=== PATIENT | male | born 1940 | race Caucasian/White ===

== ENCOUNTER → 2016-07-15 | Outpatient (REF) | payer MEDICARE, BC ==
[~2016-07-15] MED LIST: /WARF5TA OR; ASPI81TA45 OR; CALA180T OR; COLA100C2 OR; FISH1000 OR; MULTIVIT PO; OMEP20TA7 OR; OMEPRAZOLE; PLAV75TA2 OR; PRIL20CA OR; VALI5TAB OR; VERA12TASA OR; ZETI10TA OR; ZOCO40TA OR; [UNRECOGNIZED DRUG - OTHER] PO
[2016-07-15 11:39] LABS: INR 2.58
== END ==
LOC: M SFHCCLAY 09:30
PROVIDERS: ATTEND Family Medicine
DX: Z51.81 Encounter for therapeutic drug level monitoring (principal); Z79.01 Long term (current) use of 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s

== ENCOUNTER → 2016-08-14 | Outpatient (REF) | payer MEDICARE, BC ==
[2016-08-14 12:02] LABS: INR 2.19
== END ==
LOC: M SFHCCLAY 09:10
PROVIDERS: ATTEND Family Medicine
DX: Z86.73 Personal history of transient ischemic attack (TIA), and cerebral infarction without residual deficits (principal); Z79.01 Long term (current) use of 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s

== ENCOUNTER → 2016-09-10 | Outpatient (REF) | payer MEDICARE, BC ==
[2016-09-10 11:28] LABS: INR 3.28
[2016-09-10 11:44] LABS: ALBUMIN 3.4 GM/DL (3.2-5.2); ALBUMIN/GLOBULIN RATIO 0.94 (1.00-1.93); ALKALINE PHOSPHATASE 101 U/L (45-117); ALT/SGPT 40 U/L (12-78); ANION GAP 10 MEQ/L (8-16); AST/SGOT 31 U/L (15-37); BILIRUBIN,TOTAL 0.5 MG/DL (0.2-1.0); BLOOD UREA NITROGEN 13 MG/DL (7-18); CALCIUM LEVEL 8.9 MG/DL (8.8-10.2); CARBON DIOXIDE LEVEL 28 MEQ/L (21-32); CHLORIDE LEVEL 96 MEQ/L (98-107); CHOLESTEROL LEVEL 220 MG/DL (<200); CREATININE FOR GFR 0.94 MG/DL (0.70-1.30); GLOMERULAR FILTRATION RATE > 60.0 (>42); GLUCOSE, FASTING 104 MG/DL (83-110); POTASSIUM SERUM 4.1 MEQ/L (3.5-5.1); SODIUM LEVEL 134 MEQ/L (136-145); TRIGLYCERIDES LEVEL 175 MG/DL (<150)
== END ==
LOC: M SFHCCLAY 08:29
PROVIDERS: ATTEND Family Medicine
DX: E78.2 Mixed hyperlipidemia (principal); Z12.5 Encounter for screening for malignant neoplasm of prostate; Z86.73 Personal history of transient ischemic attack (TIA), and cerebral infarction without residual deficits
CPT/HCPCS: 80053; 80061; 85610; G0103

== ENCOUNTER → 2016-09-24 | Outpatient (REF) | payer MEDICARE, BC ==
[2016-09-24 11:33] LABS: INR 2.62
== END ==
LOC: M SFHCCLAY 09:00
PROVIDERS: ATTEND Family Medicine
DX: Z86.73 Personal history of transient ischemic attack (TIA), and cerebral infarction without residual deficits (principal)

== ENCOUNTER → 2016-10-22 | Outpatient (REF) | payer MEDICARE, BC ==
[2016-10-22 12:24] LABS: INR 2.64
== END ==
LOC: M SFHCCAPE 09:02
PROVIDERS: ATTEND Family Medicine
DX: Z79.01 Long term (current) use of 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s (principal)

== ENCOUNTER → 2016-11-19 | Outpatient (REF) | payer MEDICARE, BC ==
[2016-11-19 11:48] LABS: INR 2.27
== END ==
LOC: M SFHCCLAY 09:19
PROVIDERS: ATTEND Family Medicine
DX: Z86.73 Personal history of transient ischemic attack (TIA), and cerebral infarction without residual deficits (principal)

== ENCOUNTER → 2017-01-13 | Outpatient (REF) | payer MEDICARE, BC ==
[2017-01-13 11:57] LABS: INR 3.58
== END ==
LOC: M SFHCCLAY 08:47
PROVIDERS: ATTEND Family Medicine
DX: Z79.01 Long term (current) use of 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s (principal)

== ENCOUNTER → 2017-01-21 | Outpatient (REF) | payer MEDICARE, BC ==
[2017-01-21 11:41] LABS: INR 2.14
== END ==
LOC: M SFHCCLAY 08:56
PROVIDERS: ATTEND Family Medicine
DX: Z79.01 Long term (current) use of 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s (principal)

== ENCOUNTER → 2017-02-04 | Outpatient (REF) | payer MEDICARE, BC ==
[2017-02-04 12:51] LABS: INR 2.68
== END ==
LOC: M SFHCCLAY 08:53
PROVIDERS: ATTEND Family Medicine
DX: Z79.01 Long term (current) use of 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s (principal)

== ENCOUNTER → 2017-02-25 | Outpatient (REF) | payer MEDICARE, BC ==
[2017-02-25 11:38] LABS: INR 2.55
== END ==
LOC: M SFHCCLAY 08:49
PROVIDERS: ATTEND Family Medicine
DX: Z79.01 Long term (current) use of 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s (principal)

== ENCOUNTER → 2017-03-25 | Outpatient (REF) | payer MEDICARE, BC ==
[2017-03-25 12:27] LABS: INR 2.31
== END ==
LOC: M SFHCCLAY 08:54
PROVIDERS: ATTEND Family Medicine
DX: Z79.01 Long term (current) use of 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s (principal)

== ENCOUNTER → 2017-04-22 | Outpatient (REF) | payer MEDICARE, BC ==
[2017-04-22 12:18] LABS: INR 2.26
== END ==
LOC: M SFHCCLAY 08:48
PROVIDERS: ATTEND Family Medicine
DX: Z51.81 Encounter for therapeutic drug level monitoring (principal); Z79.01 Long term (current) use of 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s

== ENCOUNTER → 2017-05-20 | Outpatient (REF) | payer MEDICARE, BC ==
[2017-05-20 11:39] LABS: INR 2.78
== END ==
LOC: M SFHCCLAY 08:48
PROVIDERS: ATTEND Family Medicine
DX: Z79.01 Long term (current) use of 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s (principal)

== ENCOUNTER → 2017-06-17 | Outpatient (REF) | payer MEDICARE, BC ==
[2017-06-17 12:15] LABS: INR 2.68
== END ==
LOC: M SFHCCLAY 09:00
PROVIDERS: ATTEND Family Medicine
DX: Z51.81 Encounter for therapeutic drug level monitoring (principal); Z79.01 Long term (current) use of 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s

== ENCOUNTER → 2017-07-15 | Outpatient (CLI) | payer MEDICARE, BC | LOC: M CLY 11:29 | DX: S22.31XA Fracture of one rib, right side, initial encounter for closed fracture (principal); X58.XXXA Exposure to other specified factors, initial encounter; Y92.89 Other specified places as the place of occurrence of the external cause; Y93.89 Activity, other specified; Y99.8 Other external cause status | CPT/HCPCS: 71111; 85610 ==

== ENCOUNTER → 2017-07-29 | Outpatient (REF) | payer MEDICARE, BC ==
[2017-07-29 12:27] LABS: INR 2.13; PROTHROMBIN TIME 24.6 SECONDS (12.4-14.5)
== END ==
LOC: M SFHCCLAY 08:59
DX: Z79.01 Long term (current) use of 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s (principal)
CPT/HCPCS: 85610

== ENCOUNTER → 2017-08-12 | Outpatient (REF) | payer MEDICARE, BC ==
[2017-08-12 12:47] LABS: INR 2.43; PROTHROMBIN TIME 27.4 SECONDS (12.4-14.5)
== END ==
LOC: M SFHCCLAY 08:58
DX: Z51.81 Encounter for therapeutic drug level monitoring (principal); Z79.01 Long term (current) use of 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s
CPT/HCPCS: 85610

== ENCOUNTER → 2017-09-02 | Outpatient (REF) | payer MEDICARE, BC ==
[2017-09-02 11:49] LABS: INR 2.54; PROTHROMBIN TIME 28.4 SECONDS (12.4-14.5)
== END ==
LOC: M SFHCCLAY 08:48
DX: Z79.01 Long term (current) use of 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s (principal)
CPT/HCPCS: 85610

== ENCOUNTER → 2017-09-30 | Outpatient (REF) | payer MEDICARE, BC ==
[2017-09-30 11:47] LABS: INR 2.55; PROTHROMBIN TIME 28.5 SECONDS (12.4-14.5)
== END ==
LOC: M SFHCCLAY 09:05
DX: Z51.81 Encounter for therapeutic drug level monitoring (principal); Z79.01 Long term (current) use of 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s
CPT/HCPCS: 85610

== ENCOUNTER → 2017-10-28 | Outpatient (REF) | payer MEDICARE, BC ==
[2017-10-28 12:08] LABS: INR 2.37; PROTHROMBIN TIME 26.8 SECONDS (12.4-14.5)
== END ==
LOC: M SFHCCLAY 08:59
DX: Z79.01 Long term (current) use of 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s (principal)
CPT/HCPCS: 85610

== ENCOUNTER → 2017-11-25 | Outpatient (REF) | payer MEDICARE, BC ==
[2017-11-25 11:41] LABS: INR 4.49; PROTHROMBIN TIME 45.1 SECONDS (12.4-14.5)
== END ==
LOC: M SFHCCLAY 09:04
DX: Z79.01 Long term (current) use of 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s (principal)
CPT/HCPCS: 85610

== ENCOUNTER → 2017-12-09 | Outpatient (REF) | payer MEDICARE, BC ==
[2017-12-09 13:26] LABS: INR 3.04; PROTHROMBIN TIME 32.8 SECONDS (12.4-14.5)
== END ==
LOC: M SFHCCLAY 09:00
DX: Z51.81 Encounter for therapeutic drug level monitoring (principal); Z79.01 Long term (current) use of 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s
CPT/HCPCS: 85610

== ENCOUNTER → 2017-12-16 | Outpatient (REF) | payer MEDICARE, BC ==
[2017-12-16 11:44] LABS: PROTHROMBIN TIME 32.5 SECONDS (12.4-14.5)
== END ==
LOC: M SFHCCLAY 09:12
DX: Z51.81 Encounter for therapeutic drug level monitoring (principal); Z79.01 Long term (current) use of 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s; Z86.73 Personal history of transient ischemic attack (TIA), and cerebral infarction without residual deficits
CPT/HCPCS: 85610

== ENCOUNTER → 2017-12-30 | Outpatient (REF) | payer MEDICARE, BC ==
[2017-12-30 16:42] LABS: INR 2.06; PROTHROMBIN TIME 23.9 SECONDS (12.4-14.5)
== END ==
LOC: M SFHCCLAY 09:37
DX: Z79.01 Long term (current) use of 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s (principal); Z86.73 Personal history of transient ischemic attack (TIA), and cerebral infarction without residual deficits
CPT/HCPCS: 85610

== ENCOUNTER → 2018-01-20 | Outpatient (REF) | payer MEDICARE, BC ==
[2018-01-20 12:38] LABS: INR 2.74; PROTHROMBIN TIME 29.6 SECONDS (12.1-14.4)
== END ==
LOC: M SFHCCLAY 09:45
DX: Z51.81 Encounter for therapeutic drug level monitoring (principal); Z79.01 Long term (current) use of 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s
CPT/HCPCS: 85610

== ENCOUNTER → 2018-02-17 | Outpatient (REF) | payer MEDICARE, BC ==
[2018-02-17 12:08] LABS: INR 1.91; PROTHROMBIN TIME 22.2 SECONDS (12.1-14.4)
[2018-02-17 13:13] LABS: ALBUMIN 3.5 GM/DL (3.2-5.2); ALBUMIN/GLOBULIN RATIO 1.09 (1.00-1.93); ALKALINE PHOSPHATASE 66 U/L (45-117); ALT/SGPT 30 U/L (12-78); ANION GAP 9 MEQ/L (8-16); AST/SGOT 22 U/L (7-37); BILIRUBIN,TOTAL 0.6 MG/DL (0.2-1.0); BLOOD UREA NITROGEN 10 MG/DL (7-18); CALCIUM LEVEL 8.7 MG/DL (8.8-10.2); CARBON DIOXIDE LEVEL 27 MEQ/L (21-32); CHLORIDE LEVEL 97 MEQ/L (98-107); CHOLESTEROL LEVEL 207 MG/DL (<200); CHOLESTEROL RISK RATIO 5.048 (<5); CREATININE FOR GFR 0.95 MG/DL (0.70-1.30); GLOMERULAR FILTRATION RATE > 60.0 (>42); GLUCOSE, FASTING 116 MG/DL (70-100); HDL CHOLESTEROL 41 MG/DL (>40); NON-HDL-C 166 MG/DL; POTASSIUM SERUM 4.4 MEQ/L (3.5-5.1); SODIUM LEVEL 133 MEQ/L (136-145); TOTAL PROTEIN 6.7 GM/DL (6.4-8.2); TRIGLYCERIDES LEVEL 170 MG/DL (<150)
== END ==
LOC: M SFHCCLAY 09:07
DX: E78.2 Mixed hyperlipidemia (principal); Z79.01 Long term (current) use of 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s
CPT/HCPCS: 80053

== ENCOUNTER → 2018-03-17 | Outpatient (REF) | payer MEDICARE, BC ==
[2018-03-17 12:23] LABS: INR 1.91; PROTHROMBIN TIME 22.2 SECONDS (12.1-14.4)
== END ==
LOC: M SFHCCLAY 09:22
DX: Z79.01 Long term (current) use of 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s (principal)
CPT/HCPCS: 85610

== ENCOUNTER → 2018-04-14 | Outpatient (REF) | payer MEDICARE, BC ==
[2018-04-14 12:29] LABS: INR 2.09; PROTHROMBIN TIME 23.9 SECONDS (12.1-14.4)
== END ==
LOC: M SFHCCLAY 09:31
DX: Z79.01 Long term (current) use of 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s (principal)
CPT/HCPCS: 85610

== ENCOUNTER → 2018-05-12 | Outpatient (REF) | payer MEDICARE, BC ==
[2018-05-12 11:38] LABS: INR 2.58; PROTHROMBIN TIME 28.2 SECONDS (12.1-14.4)
== END ==
LOC: M SFHCCLAY 09:18
DX: Z51.81 Encounter for therapeutic drug level monitoring (principal); Z79.01 Long term (current) use of 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s
CPT/HCPCS: 85610

== ENCOUNTER → 2018-06-09 | Outpatient (REF) | payer MEDICARE, BC ==
[2018-06-09 12:03] LABS: INR 3.14
== END ==
LOC: M SFHCCLAY 09:30
DX: Z79.01 Long term (current) use of 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s (principal)
CPT/HCPCS: 85610

== ENCOUNTER → 2018-07-07 | Outpatient (REF) | payer MEDICARE, BC ==
[2018-07-07 11:45] LABS: INR 2.03; PROTHROMBIN TIME 23.3 SECONDS (12.1-14.4)
== END ==
LOC: M SFHCCLAY 09:14
PROVIDERS: ATTEND Family Medicine
DX: Z79.01 Long term (current) use of 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s (principal)

== ENCOUNTER → 2018-08-04 | Outpatient (REF) | payer MEDICARE, BC ==
[2018-08-04 11:58] LABS: INR 2.11; PROTHROMBIN TIME 24.1 SECONDS (12.1-14.4)
== END ==
LOC: M SFHCCLAY 09:34
PROVIDERS: ATTEND Family Medicine
DX: Z79.01 Long term (current) use of 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s (principal)

== ENCOUNTER → 2018-09-01 | Outpatient (REF) | payer MEDICARE, BC ==
[2018-09-01 12:43] LABS: INR 3.19; PROTHROMBIN TIME 33.4 SECONDS (12.1-14.4)
== END ==
LOC: M SFHCCLAY 09:09
PROVIDERS: ATTEND Family Medicine
DX: Z79.01 Long term (current) use of 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s (principal)

== ENCOUNTER → 2018-09-15 | Outpatient (REF) | payer MEDICARE, BC ==
[2018-09-15 12:07] LABS: INR 3.5
== END ==
LOC: M SFHCCLAY 09:19
PROVIDERS: ATTEND Family Medicine
DX: Z51.81 Encounter for therapeutic drug level monitoring (principal); Z79.01 Long term (current) use of 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s

== ENCOUNTER → 2018-09-29 | Outpatient (REF) | payer MEDICARE, BC ==
[2018-09-29 11:58] LABS: INR 2.86; PROTHROMBIN TIME 30.6 SECONDS (12.1-14.4)
== END ==
LOC: M SFHCCLAY 09:11
PROVIDERS: ATTEND Family Medicine
DX: Z79.01 Long term (current) use of 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s (principal)

== ENCOUNTER → 2018-10-13 | Outpatient (REF) | payer MEDICARE, BC ==
[~2018-10-13] MED LIST changes: -/WARF5TA OR; +COUM1TAB17 OR
[2018-10-13 12:08] LABS: INR 2.65; PROTHROMBIN TIME 28.8 SECONDS (12.1-14.4)
== END ==
LOC: M SFHCCLAY 09:02
PROVIDERS: ATTEND Family Medicine
DX: Z79.01 Long term (current) use of 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s (principal); Z86.73 Personal history of transient ischemic attack (TIA), and cerebral infarction without residual deficits

== ENCOUNTER → 2018-10-28 | Outpatient (REF) | payer MEDICARE, BC ==
[2018-10-28 11:30] LABS: INR 2.19; PROTHROMBIN TIME 24.8 SECONDS (12.1-14.4)
== END ==
LOC: M SFHCCAPE 08:44
PROVIDERS: ATTEND Family Medicine
DX: Z79.01 Long term (current) use of 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s (principal); Z86.73 Personal history of transient ischemic attack (TIA), and cerebral infarction without residual deficits

== ENCOUNTER → 2018-11-24 | Outpatient (REF) | payer MEDICARE, BC ==
[2018-11-24 11:48] LABS: INR 2.23; PROTHROMBIN TIME 25.1 SECONDS (12.1-14.4)
== END ==
LOC: M SFHCCLAY 09:22
PROVIDERS: ATTEND Family Medicine
DX: Z79.01 Long term (current) use of 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s (principal); Z86.73 Personal history of transient ischemic attack (TIA), and cerebral infarction without residual deficits

== ENCOUNTER → 2019-01-19 | Outpatient (REF) | payer MEDICARE, BC ==
[~2019-01-19] MED LIST changes: +OMEP-221 PO; +TAMS1CAP17 PO; +VALI5TAB PO; +VERA180C3 PO; +WARF-23 PO
[2019-01-19 12:27] LABS: INR 2.37; PROTHROMBIN TIME 25.7 SECONDS (11.8-14.0)
== END ==
LOC: M SFHCCLAY 09:08
PROVIDERS: ATTEND Family Medicine
DX: Z79.01 Long term (current) use of 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s (principal); Z86.73 Personal history of transient ischemic attack (TIA), and cerebral infarction without residual deficits

== ENCOUNTER 2019-01-24 10:07 | Day surgery (SDC) | payer MEDICARE, BC ==
[~2019-01-24] VITALS: Ht 175.3 cm; Wt 74.0 kg
[2019-01-24] MEDS ORDERED: NS 1,000 ML IV ONE (10:30)
--- NOTE | 2019-01-24 11:54 | ROOR ---
Patient Name: Kenny Marsh Procedure Date: 01/24/2019 11:43 AM Date of : 1940 Age: 78 Room: [facility] Gender: Male Note Status: Finalized Procedure: Upper GI endoscopy Indications: Heartburn Providers: Grayson BARRIENTOS MD Referring MD: MAGNOLIA STALEY DO Requesting Provider: Medicines: Monitored Anesthesia Care Complications: No immediate complications. Procedure: Pre-Anesthesia Assessment: - The heart rate, respiratory rate, oxygen saturations, blood pressure, adequacy of pulmonary ventilation, and response to care were monitored throughout the procedure. The Endoscope was introduced through the mouth, and advanced to the second part of duodenum. The upper GI endoscopy was accomplished without difficulty. The patient tolerated the procedure well. Findings: The examined esophagus was normal. The entire examined stomach was normal. The examined duodenum was normal. Impression: - Normal esophagus. - Normal stomach with a very small hiatla hernia. - Normal examined duodenum. - No specimens collected. Recommendation: - Follow an antireflux regimen. - Observe patient's clinical course. Grayson Barrientos MD Grayson BARRIENTOS MD 01/24/2019 11:54:08 AM Electronically signed by Grayson BARRIENTOS MD Number of Addenda: 0 Note Initiated On: 01/24/2019 11:43 AM Estimated Blood Loss: Estimated blood loss: none.
[2019-01-24] MEDS ORDERED: PROPOFOL 200 MG/20 ML VIAL As Ordered ONE (12:10)
[2019-01-24] MEDS ORDERED: LIDOCAINE 2% INJ 100 MG/5 ML SDV (FOR ANES.) As Ordered ONE (12:10)
[2019-01-24] MEDS ORDERED: ePHEDrine SULFATE 25 MG/5 ML(5MG/ML) SYRINGE As Ordered ONE (12:11)
--- NOTE | 2019-01-24 12:16 | ROOR ---
Patient Name: Kenny Marsh Procedure Date: 01/24/2019 11:44 AM Date of : 1940 Age: 78 Room: [facility] Gender: Male Note Status: Finalized Procedure: Colonoscopy Indications: High risk colon cancer surveillance: Personal history of colonic polyps, Last colonoscopy: September 2013 Providers: Grayson BARRIENTOS MD Referring MD: MAGNOLIA STALEY DO Requesting Provider: Medicines: Monitored Anesthesia Care Complications: No immediate complications. Procedure: Pre-Anesthesia Assessment: - The heart rate, respiratory rate, oxygen saturations, blood pressure, adequacy of pulmonary ventilation, and response to care were monitored throughout the procedure. The Colonoscope was introduced through the anus and advanced to the cecum, identified by appendiceal orifice and ileocecal valve. The colonoscopy was performed without difficulty. The patient tolerated the procedure well. The quality of the bowel preparation was fair. Findings: The perianal and digital rectal examinations were normal. (EXAM: Complete, PREP: Suboptimal) A localized area of granular mucosa was found in the cecum. Biopsies were taken with a cold forceps for histology. A 4 mm polyp was found in the sigmoid colon. The polyp was sessile. The polyp was removed with a cold snare. Resection and retrieval were complete. To prevent bleeding after the polypectomy, two hemostatic clips were successfully placed. There was no bleeding at the end of the procedure. Internal hemorrhoids were found during retroflexion. The hemorrhoids were medium-sized. The exam was otherwise without abnormality on direct and retroflexion views. Impression: - (EXAM: Complete, PREP: Suboptimal) - Granularity in the cecum. Biopsied. - One 4 mm polyp in the sigmoid colon, removed with a cold snare. Resected and retrieved. Clips were placed. - Internal hemorrhoids. - The examination was otherwise normal on direct and retroflexion views. Recommendation: - Telephone endoscopist for pathology results in 2 weeks. - Repeat colonoscopy for surveillance based on pathology results. Grayson Barrientos MD Grayson BARRIENTOS MD 01/24/2019 12:16:02 PM Electronically signed by Grayson BARRIENTOS MD Number of Addenda: 0 Note Initiated On: 01/24/2019 11:44 AM Estimated Blood Loss: Estimated blood loss: none.
[2019-01-24 12:40] VITALS: BP 125/82
== END 2019-01-24 12:56 | disposition home or self-care (01) ==
LOC: M OPP 10:07
PROVIDERS: ATTEND Internal Medicine Gastroenterology
DX: Z12.11 Encounter for screening for malignant neoplasm of colon (principal); Z86.010 Personal history of colon polyps; K64.8 Other hemorrhoids; K63.89 Other specified diseases of intestine; K63.5 Polyp of colon; R12 Heartburn; Z79.899 Other long term (current) drug therapy

== ENCOUNTER → 2019-02-16 | Outpatient (REF) | payer MEDICARE, BC ==
[2019-02-16 13:51] LABS: INR 2.75
[2019-02-16 13:59] LABS: BASO % 0.6 % (0.0-1.0); EOS # 0.1 10^3/uL (0.0-0.50); HEMOGLOBIN 15.3 g/dl (13.5-17.5); LYMPH # 1.5 10^3/uL (1.5-4.5); LYMPH % 30.5 % (24.0-44.0); MEAN CORPUSCULAR HEMOGLOBIN 32.3 pg (27.0-33.0); MEAN CORPUSCULAR HGB CONC 34.8 g/dl (32.0-36.5); MONO # 0.5 10^3/uL (0.0-0.8); MONO % 9.8 % (0.0-5.0); NEUTROPHILS # 2.8 10^3/uL (1.8-7.7); NEUTROPHILS % 56.7 % (36.0-66.0); PLATELET COUNT, AUTOMATED 169 10^3/uL (150-450); RED BLOOD COUNT 4.73 10^6/uL (4.30-6.10); WHITE BLOOD COUNT 4.9 10^3/uL (4.0-10.0)
[2019-02-16 14:21] LABS: ALBUMIN 3.8 GM/DL (3.2-5.2); ALT/SGPT 33 U/L (12-78); BILIRUBIN,TOTAL 0.4 MG/DL (0.2-1.0); BLOOD UREA NITROGEN 11 MG/DL (7-18); CALCIUM LEVEL 9.3 MG/DL (8.8-10.2); CARBON DIOXIDE LEVEL 29 MEQ/L (21-32); CHLORIDE LEVEL 95 MEQ/L (98-107); CHOLESTEROL LEVEL 209 MG/DL (<200); CHOLESTEROL RISK RATIO 5.971 (<5); CREATININE FOR GFR 0.91 MG/DL (0.70-1.30); GLOMERULAR FILTRATION RATE > 60.0 (>42); GLUCOSE, FASTING 87 MG/DL (70-100); HDL CHOLESTEROL 35 MG/DL (>40); LDL CHOLESTEROL 138 MG/DL (<100); NON-HDL-C 174 MG/DL; POTASSIUM SERUM 4.8 MEQ/L (3.5-5.1); SODIUM LEVEL 131 MEQ/L (136-145); TOTAL PROTEIN 6.6 GM/DL (6.4-8.2); TRIGLYCERIDES LEVEL 182 MG/DL (<150)
== END ==
LOC: M SFHCCLAY 08:55
PROVIDERS: ATTEND Family Medicine
DX: E78.2 Mixed hyperlipidemia (principal); Z86.73 Personal history of transient ischemic attack (TIA), and cerebral infarction without residual deficits; Z79.01 Long term (current) use of 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s

== ENCOUNTER → 2019-03-16 | Outpatient (REF) | payer MEDICARE, BC ==
[2019-03-16 17:11] LABS: INR 3.08; PROTHROMBIN TIME 31.7 SECONDS (11.8-14.0)
== END ==
LOC: M SFHCCLAY 10:52
PROVIDERS: ATTEND Family Medicine
DX: Z79.01 Long term (current) use of 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s (principal); Z86.73 Personal history of transient ischemic attack (TIA), and cerebral infarction without residual deficits

== ENCOUNTER → 2019-04-13 | Outpatient (REF) | payer MEDICARE, BC ==
[2019-04-13 11:48] LABS: INR 2.34; PROTHROMBIN TIME 25.5 SECONDS (11.8-14.0)
== END ==
LOC: M SFHCCLAY 09:28
PROVIDERS: ATTEND Family Medicine
DX: Z86.73 Personal history of transient ischemic attack (TIA), and cerebral infarction without residual deficits (principal); Z79.01 Long term (current) use of 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s

== ENCOUNTER → 2019-05-11 | Outpatient (REF) | payer MEDICARE, BC ==
[2019-05-11 12:20] LABS: INR 2.82; PROTHROMBIN TIME 29.6 SECONDS (11.8-14.0)
== END ==
LOC: M SFHCCLAY 10:06
PROVIDERS: ATTEND Family Medicine
DX: Z86.73 Personal history of transient ischemic attack (TIA), and cerebral infarction without residual deficits (principal)

== ENCOUNTER → 2019-06-07 | Outpatient (REF) | payer MEDICARE, BC ==
[2019-06-07 12:27] LABS: INR 3.04; PROTHROMBIN TIME 31.4 SECONDS (11.8-14.0)
== END ==
LOC: M SFHCCLAY 09:18
PROVIDERS: ATTEND Family Medicine
DX: Z51.81 Encounter for therapeutic drug level monitoring (principal); Z79.01 Long term (current) use of 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s; Z86.73 Personal history of transient ischemic attack (TIA), and cerebral infarction without residual deficits

== ENCOUNTER → 2019-07-03 | Outpatient (REF) | payer MEDICARE, BC ==
[2019-07-03 11:26] LABS: INR 2.51; PROTHROMBIN TIME 26.9 SECONDS (11.8-14.0)
== END ==
LOC: M SFHCCLAY 09:15
PROVIDERS: ATTEND Family Medicine
DX: Z86.73 Personal history of transient ischemic attack (TIA), and cerebral infarction without residual deficits (principal); Z79.01 Long term (current) use of 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s

== ENCOUNTER → 2019-08-03 | Outpatient (REF) | payer MEDICARE, BC ==
[2019-08-03 12:50] LABS: INR 3.05; PROTHROMBIN TIME 31.5 SECONDS (11.8-14.0)
== END ==
LOC: M SFHCCLAY 09:00
PROVIDERS: ATTEND Family Medicine
DX: Z86.73 Personal history of transient ischemic attack (TIA), and cerebral infarction without residual deficits (principal); Z79.01 Long term (current) use of 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s

== ENCOUNTER → 2019-08-30 | Outpatient (REF) | payer MEDICARE, BC ==
[2019-08-30 12:01] LABS: INR 2.87
[2019-08-30 12:02] LABS: ALBUMIN 3.9 GM/DL (3.2-5.2); ALT/SGPT 30 U/L (12-78); BILIRUBIN,TOTAL 0.5 MG/DL (0.2-1.0); BLOOD UREA NITROGEN 16 MG/DL (7-18); CALCIUM LEVEL 8.9 MG/DL (8.8-10.2); CARBON DIOXIDE LEVEL 30 MEQ/L (21-32); CHLORIDE LEVEL 98 MEQ/L (98-107); CHOLESTEROL LEVEL 211 MG/DL (<200); CHOLESTEROL RISK RATIO 6.593 (<5); CREATININE FOR GFR 0.98 MG/DL (0.70-1.30); GLOMERULAR FILTRATION RATE > 60.0 (>42); GLUCOSE, FASTING 79 MG/DL (70-100); HDL CHOLESTEROL 32 MG/DL (>40); LDL CHOLESTEROL 126 MG/DL (<100); NON-HDL-C 179 MG/DL; POTASSIUM SERUM 4.2 MEQ/L (3.5-5.1); SODIUM LEVEL 133 MEQ/L (136-145); TOTAL PROTEIN 6.9 GM/DL (6.4-8.2); TRIGLYCERIDES LEVEL 267 MG/DL (<150)
== END ==
LOC: M SFHCCLAY 08:34
PROVIDERS: ATTEND Family Medicine
DX: E78.2 Mixed hyperlipidemia (principal); Z12.5 Encounter for screening for malignant neoplasm of prostate; Z86.73 Personal history of transient ischemic attack (TIA), and cerebral infarction without residual deficits
CPT/HCPCS: 80053; 80061; 85610; G0103

== ENCOUNTER 2020-08-24 10:27 | Emergency (ER) | payer MEDICARE, BC ==
[~2020-08-24] VITALS: Ht 175.3 cm; Wt 79.6 kg
--- OUTSIDE RECORDS SUMMARY | 2020-08-24 10:34 | CCD ---
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 Active 191265848 Problem Benign prostatic hyperplasia with lower urinary tract symptoms N40.1 Active 411976679 Problem Anxiety F41.9 Active 48887768 Problem Erectile dysfunction, unspecified erectile dysfunction typ e N52.9 Active 406132978 Problem 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 02813450 Problem Migraine with aura and without status migrainosu s, not intractable G43.109 Active 7796303 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 Active 345259770 Problem Hx of colonic polyp Z86.010 Active 424093107 Problem GERD without esophagitis K21.9 Active 9190569 05 Problem Migraine without status migr ainosus, not intractable, unspecified migraine type G43.909 Active 89395862 Problem History of CVA (cerebrovascular accident) Z86.73 Active 362431321 ALLERGIES Allergen (clinical drug ingredient) Drug/Non Drug Allergy do cumented on EMR Reaction Allergy Type Onset Date Status simvastatin Zocor([facility] Code:[address]-89) myalgia Drug Allergy Active ENCOUNTERS from 1940 to 2020-07-22 Encounter Location Date Provider Diagnosis [facility] [address] [place] [address] Jul Hieu Castro shelter current use of 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 t herapy Z79.01 and History of CVA (cerebrovascular accident) Z86.73 IMMUNIZATIONS No Information SOCIAL HISTORY Tobacco Use: Social History Observation Description Date Details (start date - stop date) Former Smoker Sex Assigned At : Social History Observation Description Sex Assigned At Unknown Audit Question Answer Notes Total Score: 4 Interpretation: Alcohol Education Sexual Hx: Question Answer Notes Had sex in the last 12 months (vaginal, oral, or anal)? No Have you ever had an STD? No Drug and Alcohol Question Answer Notes Total Score: 0 Interpretation: No problems reported Alcohol Screening: Question Answer Notes Did you have a drink containing alcohol in the past year? Ye s Points 3 Interpretation Negative How often did you have six or more drinks on one occas ion in the past year? Never (0 points) How many drinks did you have on a typica l day when you were drinking in the past year? 1 or 2 (0 points) How often did you have a drink containing alcohol in t he past year? Two to three times per week (3 points) BMI Care Goal Follow-Up Question Answer Notes Above Normal BMI Follow-Up Dietary management educatio n, guidance, and counseling Tobacco Use: Question Answer Notes Are you a: former smoker How long has it been since you last smoked? > 10 years REASON FOR REFERRAL No Information VITAL SIGNS No information MEDICATIONS Medication SIG (Take, Route, Frequency, Duration) Notes Start Da te End Date Status Sildenafil Citrate 100 MG 1/2-1 tablet as needed Orall y Once a day for 30 day(s) Feb, Active Coumadin 5 MG 1 tablet Orally Once a day for 90 day(s) Active Verapamil HCl ER 180 MG 1 capsule Orally Once a day for 90 days Active Omeprazole 40 MG 1 capsule Orally Once a day for 90 day(s) Active Flomax 0.4 MG 1 capsule Orally Once a day for 90 Active Valium 5 MG 1 tablet as needed Orally-MARLON Twice a da y Code A/MDD #2 for 90 days Jul, Active PROCEDURES No Information RESULTS Component Value Reference Range PT-INR Fingerstick Reviewed date:07/18/2020 13:27:58 Interpretation: Performing Lab:[facility], [place] [address] INR 2.2 Verified Patient's Name and YES Current Dose 1 2.5M/W/F 5MG ROW Current Dose 2 Tab Strength Indication for Anticoagulation CVA Recent Bleeding NO Internal QC Acceptable (Y/N) Therapeutic Range 2-3 Education Given (Date / Initials) New Dose 1 no change New Dose 2 Weekly Total Next PT-INR 4 weeks - - REASON FOR VISIT INR FINGERSTICK MEDICAL (GENERAL) HISTORY Type Description Date Medical History Migraines Medical History CVA-2011 Medical History Anxiety Medical History BPH Medical History GERD Medical History Hyperlipidemia Surgical History Right and left knee arthroscopy Surgical History Colonoscopy- polyp, repeat 3 years 2013 Surgical History EGD- normal 01/2019 Surgical History Colonoscopy-polyp x1 01/2019 Hospitalization History CVA 2011 Goals Section No Information Health Concerns No Information MEDICAL EQUIPMENT No Information MENTAL STATUS No Information FUNCTIONAL STATUS No Information ASSESSMENTS Encounter Date Diagnosis Assessment Notes Treatment Notes Treatm ent Clinical Notes Jul, shelter current use of 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 therapy ( ICD-10 - Z79.01) Jul, History of CVA (cerebrovascular accident) (ICD-1 0 - Z86.73) PLAN OF TREATMENT Medication Medication Name Sig Start Date Stop Date Omeprazole 40 MG 1 capsule Orally Once a day for 90 day(s) Next Appt Details Provider Name:Hieu Caba Carlosemiliazaidapaige, 10:45:00 AM, [address] [place] [address], [phone], Insurance Providers Payer Name Payer Address Payer Phone Insured Name Patient Relati onship to Insured Coverage Start Date Coverage End Date MEDICARE Part A and B [facility] [address] [place] [phone] LYNN SAMSON [facility] PPO [id number] [facility] [address] LYNN SAMSON
--- OUTSIDE RECORDS SUMMARY | 2020-08-24 10:34 | CCD ---
Author Author [facility] Organization 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 Active confirmed 494879228 Problem Benign prostatic hyperplasia with lower urinary tract symptoms N40.1 Active confirmed 747152744 Problem Anxiety F41.9 Active confirmed 29926653 Problem Erectile dysfunction, unspecified erectile dysfunction typ e N52.9 Active confirmed 516557624 Problem 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 confirmed 89292745 Problem Migraine with aura and without status migrainosu s, not intractable G43.109 Active confirmed 3509660 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 Active confirmed 416849800 Problem Hx of colonic polyp Z86.010 Active confirmed 756875960 Problem GERD without esophagitis K21.9 Active confirmed 163618648 Problem Migraine without status migr ainosus, not intractable, unspecified migraine type G43.909 Active confirmed 06260804 Problem History of CVA (cerebrovascular accident) Z86.73 Active confirmed 681292772 ALLERGIES Allergen (clinical drug ingredient) Drug/Non Drug Allergy do cumented on EMR Reaction Allergy Type Onset Date Status simvastatin Zocor([facility] Code:[address]-39) myalgia Drug Allergy Active ENCOUNTERS from 1940 to 2020-08-19 Encounter Location Date Provider Diagnosis [facility] [address] [place] [address] Aug Hieu Castro assisted current use of 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 t herapy Z79.01 [...] Notes Start Da te End Date Status Flomax 0.4 MG 1 capsule Orally Once a day for 90 Active Coumadin 5 MG 1 tablet Orally Once a day for 90 day(s) Active Valium 5 MG 1 tablet as needed Orally-MARLON Twice a da y Code A/MDD #2 for 90 days Jul, Active Sildenafil Citrate 100 MG 1/2-1 tablet as needed Orall y Once a day for 30 day(s) Feb, Active Verapamil HCl ER 180 MG 1 capsule Orally Once a day for 90 days Active Omeprazole 40 MG 1 capsule Orally Once a day for 90 day(s) Active PROCEDURES No Information RESULTS Component Value Reference Range PT-INR Fingerstick Reviewed date:08/15/2020 11:26:00 Interpretation: Performing Lab:[facility], [place] [address] INR 2.0 Verified Patient's Name and yes Current Dose 1 2,5mg M/W/F 5MGROW Current Dose 2 Tab Strength Indication for Anticoagulation CVA Recent Bleeding NO Internal QC Acceptable (Y/N) Therapeutic Range Education Given (Date / Initials) New Dose 1 no change New Dose 2 Weekly Total Next PT-INR 4 weeks - - REASON FOR VISIT FINGERSTICK INR MEDICAL (GENERAL) HISTORY Type Description Date Medical [...] Notes Treatment Notes Treatm ent Clinical Notes Aug, 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 ( ICD-10 - Z79.01) Aug, History of CVA (cerebrovascular accident) (ICD-1 0 - Z86.73) PLAN OF TREATMENT Medication Medication Name Sig Start Date Stop Date Omeprazole 40 MG 1 capsule Orally Once a day for 90 day(s) Verapamil HCl ER 180 MG 1 capsule Orally Once a day for 90 days Next Appt Details Provider Name:Hieu Caba Gloria, 10:45:00 AM, [address] [place], [address], Insurance Providers Payer Name Payer Address Payer Phone Insured Name Patient Relati onship to Insured Coverage Start Date Coverage End Date MEDICARE Part A and B [address] [facility] [phone] LYNN SAMSON [employer] [place] PPO [id number] [facility] [employer] [facility] [place] [address] LYNN SAMSON
--- OUTSIDE RECORDS SUMMARY | 2020-08-24 10:34 | CCD ---
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 Active 191017519 Problem Benign prostatic hyperplasia with lower urinary tract symptoms N40.1 Active 103194849 Problem Anxiety F41.9 Active 00340495 Problem Erectile dysfunction, unspecified erectile dysfunction typ e N52.9 Active 396012275 Problem 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 52293217 Problem Migraine with aura and without status migrainosu s, not intractable G43.109 Active 6236054 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 of 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 therapy Z79 .01 Active 199233827 Problem Hx of colonic polyp Z86.010 Active 531810181 Problem GERD without esophagitis K21.9 Active 7917590 05 Problem Migraine without status migr ainosus, not intractable, unspecified migraine type G43.909 Active 88186597 Problem History of CVA (cerebrovascular accident) Z86.73 Active 583709008 ALLERGIES Allergen (clinical drug ingredient) Drug/Non Drug Allergy do cumented on EMR Reaction Allergy Type Onset Date Status simvastatin Zocor([facility] Code:[address]-39) myalgia Drug Allergy Active ENCOUNTERS from 1940 to 2020-06-24 Encounter Location Date Provider Diagnosis [facility] [address] [place] [address] Jun Hieu Castro jail current use of 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 t herapy Z79.01 [...] Component Value Reference Range PT-INR Fingerstick Reviewed date:06/20/2020 12:57:01 Interpretation: Performing Lab:[facility], [place] [address] INR 2.2 Verified Patient's Name and yes Current Dose 1 2.5mg MWF Current Dose 2 5mg ROW Tab Strength Indication for Anticoagulation CVA Recent Bleeding No Internal QC Acceptable (Y/N) Therapeutic Range 2-3 Education Given (Date / Initials) New Dose 1 no change New Dose 2 Weekly Total Next PT-INR 4 weeks - - REASON FOR VISIT INR fingerstick MEDICAL (GENERAL) HISTORY Type Description Date Medical [...] Notes Treatment Notes Treatm ent Clinical Notes Jun, weight recorder current use of 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 therapy ( ICD-10 - Z79.01) Jun, History of CVA (cerebrovascular accident) (ICD-1 0 - Z86.73) PLAN OF TREATMENT Medication Medication Name Sig Start Date Stop Date Omeprazole 40 MG 1 capsule Orally Once a day for 90 day(s) Next Appt Details Provider Name:Hieu Caba Kimberleepaige, 10:45:00 AM, [address] [place] [address], [phone], Insurance Providers Payer Name Payer Address Payer Phone Insured Name Patient Relati onship to Insured Coverage Start Date Coverage End Date MEDICARE Part A and B [facility] [address] [place] [phone] LYNN SAMSON [facility] PPO [id number] [facility] [id number] LYNN SAMSON
--- OUTSIDE RECORDS SUMMARY | 2020-08-24 10:34 | CCD ---
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 Active 812993878 Problem Benign prostatic hyperplasia with lower urinary tract symptoms N40.1 Active 380800200 Problem Anxiety F41.9 Active 42667819 Problem Erectile dysfunction, unspecified erectile dysfunction typ e N52.9 Active 747153212 Problem 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 14647547 Problem Migraine with aura and without status migrainosu s, not intractable G43.109 Active 3507760 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 Z79 .01 Active 080553793 Problem Hx of colonic polyp Z86.010 Active 675342127 Problem GERD without esophagitis K21.9 Active 1882148 05 Problem Migraine without status migr ainosus, not intractable, unspecified migraine type G43.909 Active 10969454 Problem History of CVA (cerebrovascular accident) Z86.73 Active 076878191 ALLERGIES Allergen (clinical drug ingredient) Drug/Non Drug Allergy do cumented on EMR Reaction Allergy Type Onset Date Status simvastatin Zocor([facility] Code:[address]-59) myalgia Drug Allergy Active ENCOUNTERS from 1940 to 2020-07-25 Encounter Location Date Provider Diagnosis [facility] [address] [place] [address] Jul Hieu Castro IMMUNIZATIONS No Information SOCIAL HISTORY Tobacco Use: [...] 90 day(s) Active PROCEDURES No Information RESULTS No Results REASON FOR VISIT Refill - Verapamil MEDICAL (GENERAL) HISTORY Type Description Date Medical [...] No Information FUNCTIONAL STATUS No Information ASSESSMENTS No Information PLAN OF TREATMENT Medication Medication Name Sig Start Date Stop Date Omeprazole 40 MG 1 capsule Orally Once a day for 90 day(s) Verapamil HCl ER 180 MG 1 capsule Orally Once a day for 90 days Next Appt Details Provider Name:Hieu Castro, 10:45:00 AM, [address] [facility], [place], [address], Insurance Providers Payer Name Payer Address Payer Phone Insured Name Patient Relati onship to Insured Coverage Start Date Coverage End Date MEDICARE Part A and B [address] [facility] [phone] [id number] [facility] [place] [address] LYNN SAMSON self
--- OUTSIDE RECORDS SUMMARY | 2020-08-24 10:35 | CCD ---
Author Author [facility] Organization [facility] Address Unknown Phone Unavailable Support Name Relationship Address Phone RE Next Of Kin Unknown Unavailable CLAUDETTE ALLISONIE Next Of Kin [id number] [facility] [address] [place] [address] [place] [address] Unavaila ble Re-disclosure Warning The records that you are about to access may contain information from federally-assisted alcohol or drug abuse programs. If such information is present, then the following federally mandated warning applies: This information has been disclosed to you from records protected by federal confidentiality rules (42 CFR part 2). The federal rules prohibit you from making any further disclosure of this information unless further disclosure is expressly permitted by the written consent of the person to whom it pertains or as otherwise permitted by 42 CFR part 2. A general authorization for the release of medical or other information is NOT sufficient for this purpose. The Federal rules restrict any use of the information to criminally investigate or prosecute any alcohol or drug abuse patient.The records that you are about to access may contain highly sensitive health information, the redisclosure of which is protected by Article 27-F of the [facility] Public Health law. If you continue you may have access to information: Regarding HIV / AIDS; Provided by facilities licensed or operated by the [facility] Office of Mental Health; or Provided by the [facility] Office for People With Developmental Disabilities. If such information is present, then the following [facility] mandated warning applies: This information has been disclosed to you from confidential records which are protected by state law. State law prohibits you from making any further disclosure of this information without the specific written consent of the person to whom it pertains, or as otherwise permitted by law. Any unauthorized further disclosure in violation of state law may result in a fine or group home sentence or both. A general authorization for the release of medical or other information is NOT sufficient authorization for further disc losure. Allergies and Adverse Reactions Type Description Substance Reaction Status Data Source(s ) Drug allergy Zocor Simvastatin myalgia Active eCW1 ([facility]) Family History Family Member Name Family Member Gender Family Member Status Date o f Status Description Data Source(s) Unknown Unknown Problem MEDENT ([facility], ) Encounters Encounter Providers Location Date Indications Data Source(s ) [place] [address] [facility] [address] 08/15/2020 12:00:00 AM EST eCW1 ([facility]) Unknown [address] [facility] [place] [address] 07/24/2020 12:00:00 AM EST eCW1 ([facility]) [place] [address] [facility] [address] 07/18/2020 12:00:00 AM EST eCW1 ([facility]) [place]patient [address] [facility] [place] [address] 06/20/2020 12:00:00 AM EST eCW1 ([facility]) [place] [address] [facility] [address] 05/21/2020 12:00:00 AM EST eCW1 ([facility]) [place] [address] [facility] [address] 05/09/2020 12:00:00 AM EDT eCW1 ([facility]) [place] [address] [facility] [address] 04/25/2020 12:00:00 AM EDT eCW1 ([facility]) [facility] [address] [facility] [address] 02/23/2020 12:00:00 AM EDT eCW1 ([facility]) [place] [address] [facility] [address] 01/25/2020 12:00:00 AM EDT eCW1 ([facility]) Unknown [address] [facility] [place] [address] 01/23/2020 12:00:00 AM EDT eCW1 ([facility]) [facility] [address] [facility] [address] 2019 12:00:00 AM EDT eCW1 ([facility]) [facility] [address] [facility] [address] 11/30/2019 12:00:00 AM EDT eCW1 ([facility]) [facility] [address] [place] [address], [place] [address] 10/30/2019 12:00:00 AM EDT eCW1 ([facility] [address] [place] [address] 10/30/2019 12:00:00 AM EDT eCW1 ([facility]) [facility] [address] [place] [address], [place] [address] 10/26/2019 12:00:00 AM EDT eCW1 ([facility]) [address] [address] 10/25/2019 12:00:00 AM EDT eCW1 ([facility]) [address] [address] 10/13/2019 12:00:00 AM EDT eCW1 ([facility]) [address] [address] 09/29/2019 12:00:00 AM EDT eCW1 ([facility]) [address] [address] 09/28/2019 12:00:00 AM EDT eCW1 ([facility]) [address] [address] 08/30/2019 12:00:00 AM EST eCW1 ([facility]) [address] [address] 08/30/2019 12:00:00 AM EST eCW1 ([facility]) [address] [address] 08/25/2019 12:00:00 AM EST eCW1 ([facility]) [address] [address] 08/03/2019 12:00:00 AM EST eCW1 ([facility]) [address] [address] 08/03/2019 12:00:00 AM EST eCW1 ([facility]) [address] [address] 07/25/2019 12:00:00 AM EST eCW1 ([facility]) [address] [address] 07/03/2019 12:00:00 AM EST eCW1 ([facility]) [address] [address] 07/03/2019 12:00:00 AM EST eCW1 ([facility]) Medications Medication Brand Name Start Date Product Form Dose Route Admi nistrative Instructions Pharmacy Instructions Status Indications Reaction Description Data Source(s) 180 mg 07/25/2020 12:00:00 AM EST capsule,ext rel. pellet s 24 hr 90 TAKE ONE CAPSULE BY MOUTH EVERY DAY TAKE ONE CAPSULE BY MOUTH EVERY DAY SOLD: 07/26/2020 [facility] 5 mg 05/13/2020 12:00:00 AM EST tablet 180 TAKE ONE TABLET BY MOUTH TWICE A DAY NEEDED MAX=2TABS/DAY TAKE ONE TABLET BY MOUTH TWICE A DAY NEEDED MAX=2TABS/DAY SOLD: 05/15/2020 [facility] 40 mg 04/09/2020 12:00:00 AM EDT capsule,delayed release (DR/EC) 90 TAKE ONE CAPSULE BY MOUTH ONCE DAILY TAKE ONE CAPSULE BY MOUTH ONCE DAILY SOLD: 07/09/2020 [facility] 40 mg 04/09/2020 12:00:00 AM EDT capsule,delayed release (DR/EC) 90 TAKE ONE CAPSULE BY MOUTH ONCE DAILY TAKE ONE CAPSULE BY MOUTH ONCE DAILY SOLD: 04/10/2020 [facility] 0.4 mg 03/05/2020 12:00:00 AM EDT capsule 90 TAKE ONE CAPSULE BY MOUTH EVERY DAY TAKE ONE CAPSULE BY MOUTH EVERY DAY SOLD: 06/10/2020 [facility] 0.4 mg 03/05/2020 12:00:00 AM EDT capsule 90 TAKE ONE CAPSULE BY MOUTH EVERY DAY TAKE ONE CAPSULE BY MOUTH EVERY DAY SOLD: 03/07/2020 [facility] 5 mg 01/26/2020 12:00:00 AM EDT tablet 180 TAKE ONE TABLET BY MOUTH TWICE A DAY NEEDED MAXIMUM DAILY DOSE = 2 TABLETS TAKE ONE TABLET BY MOUTH TWICE A DAY NEEDED MAXIMUM DAILY DOSE = 2 TABLETS SOLD: 02/01/2020 [facility] 180 mg 01/24/2020 12:00:00 AM EDT capsule,ext rel. pellet s 24 hr 90 TAKE ONE CAPSULE BY MOUTH EVERY DAY TAKE ONE CAPSULE BY MOUTH EVERY DAY SOLD: 01/25/2020 [facility] 180 mg 01/24/2020 12:00:00 AM EDT capsule,ext rel. pellet s 24 hr 90 TAKE ONE CAPSULE BY MOUTH EVERY DAY TAKE ONE CAPSULE BY MOUTH EVERY DAY SOLD: 04/25/2020 [facility] 180 mg 10/30/2019 12:00:00 AM EDT capsule,ext rel. pellet s 24 hr 90 TAKE ONE CAPSULE BY MOUTH EVERY DAY TAKE ONE CAPSULE BY MOUTH EVERY DAY SOLD: 10/31/2019 [facility] 5 mg 10/29/2019 12:00:00 AM EDT tablet 180 TAKE ONE TABLET BY MOUTH TWICE A DAY NEEDED MAXIMUM DAILY DOSE = 2 TABLETS TAKE ONE TABLET BY MOUTH TWICE A DAY NEEDED MAXIMUM DAILY DOSE = 2 TABLETS SOLD: 10/31/2019 [facility] 5 mg 10/13/2019 12:00:00 AM EDT tablet 90 TAKE ONE TABLET BY MOUTH EVERY DAY TAKE ONE TABLET BY MOUTH EVERY DAY SOLD: 06/10/2020 [facility] 5 mg 10/13/2019 12:00:00 AM EDT tablet 90 TAKE ONE TABLET BY MOUTH EVERY DAY TAKE ONE TABLET BY MOUTH EVERY DAY SOLD: 02/16/2020 [facility] 5 mg 10/13/2019 12:00:00 AM EDT tablet 90 TAKE ONE TABLET BY MOUTH EVERY DAY TAKE ONE TABLET BY MOUTH EVERY DAY SOLD: 10/26/2019 [facility] 5 mg 07/26/2019 12:00:00 AM EST tablet 180 TAKE ONE TABLET BY MOUTH TWICE A DAY NEEDED MAXIMUM DAILY DOSE = 2 TAKE ONE TABLET BY MOUTH TWICE A DAY NEEDED MAXIMUM DAILY DOSE = 2 SOLD: 08/03/2019 [facility] 40 mg 04/11/2019 12:00:00 AM EDT capsule,delayed release (DR/EC) 90 TAKE ONE CAPSULE BY MOUTH EVERY DAY TAKE ONE CAPSULE BY MOUTH EVERY DAY SOLD: 10/05/2019 [facility] 40 mg 04/11/2019 12:00:00 AM EDT capsule,delayed release (DR/EC) 90 TAKE ONE CAPSULE BY MOUTH EVERY DAY TAKE ONE CAPSULE BY MOUTH EVERY DAY SOLD: 01/11/2020 [facility] 40 mg 04/11/2019 12:00:00 AM EDT capsule,delayed release (DR/EC) 90 TAKE ONE CAPSULE BY MOUTH EVERY DAY TAKE ONE CAPSULE BY MOUTH EVERY DAY SOLD: 07/11/2019 [facility] 0.4 mg 03/16/2019 12:00:00 AM EDT capsule 90 TAKE ONE CAPSULE BY MOUTH EVERY DAY TAKE ONE CAPSULE BY MOUTH EVERY DAY SOLD: 12/13/2019 [facility] 0.4 mg 03/16/2019 12:00:00 AM EDT capsule 90 TAKE ONE CAPSULE BY MOUTH EVERY DAY TAKE ONE CAPSULE BY MOUTH EVERY DAY SOLD: 09/14/2019 [facility] 180 mg 11/07/2018 12:00:00 AM EDT capsule,ext rel. pellet s 24 hr 90 TAKE ONE CAPSULE BY MOUTH EVERY DAY TAKE ONE CAPSULE BY MOUTH EVERY DAY SOLD: 08/03/2019 [facility] 5 mg 08/16/2018 12:00:00 AM EST tablet 90 TAKE ONE TABLET BY MOUTH EVERY DAY TAKE ONE TABLET BY MOUTH EVERY DAY SOLD: 07/03/2019 [facility] Insurance Providers Payer name Policy type / Coverage type Policy ID Covered constitution party ID Covered constitution party's relationship to gamez Policy Game[employer] Plan Information MEDICARE [id number] SP [id number] [place]/307 [id number] SP [id number] [place]/307 [id number] SP [id number] MEDICARE [id number] SP [id number] [id number] ANSI-Medicare Part B [id number] ANSI-Commercial [id number] ANSI-Medicare Part B [id number] ANSI-Commercial [id number] ANSI-Commercial [id number] ANSI-Medicare Part B [id number] ANSI-Commercial [id number] ANSI-Medicare Part B [id number] ANSI-Commercial [id number] ANSI-Medicare Part B [id number] [facility] Part B [id number] Self [id number] Medicare [place] Medicare Primary [id number] Self [id number] ANSI-Commercial [id number] ANSI-Medicare Part B [id number] ANSI-Medicare Part B [id number] ANSI-Commercial [id number] ANSI-Commercial [id number] ANSI-Medicare Part B [id number] ANSI-Commercial [id number] ANSI-Medicare Part B [id number] ANSI-Medicare Part B [id number] ANSI-Commercial [id number] ANSI-Commercial [id number] ANSI-Medicare Part B [id number] ANSI-Commercial [id number] ANSI-Medicare Part B [id number] MEDICARE [id number] SP [id number] A ANSI-Medicare Part B [id number] ANSI-Commercial [id number] ANSI-Medicare Part B [id number] ANSI-Commercial [id number] ANSI-Commercial [id number] ANSI-Medicare Part B [id number] ANSI-Commercial [id number] ANSI-Medicare Part B [id number] ANSI-Medicare Part B [id number] ANSI-Commercial [id number]-[id number] ANSI-Medicare Part B [id number] ANSI-Commercial [id number]-5r6f-81jm-ye18x2w3x15s [id number]-4f1e-60pf-[id number] ANSI-Commercial [id number]-[id number]-[id number] [id number]-f314-2490-4npn-2s9y9q0p3y5z ANSI-Medicare Part B [id number]-[id number] ANSI-Commercial [id number]-7151-g6on-[id number] [id number]-9625-x6fw-r3d53fy2g0eb ANSI-Medicare Part B [id number] ANSI-Medicare Part B [id number]-[id number] ANSI-Commercial [id number]-[id number]-l514-3zv359p2q25c ANSI-Commercial [id number] ANSI-Medicare Part B [id number] ANSI-Commercial [id number] [id number] ANSI-Medicare Part B [id number] ANSI-Commercial cy545zlz-531g-[id number]-001e-50k3-38kb-[id number] ANSI-Medicare Part B [id number] ANSI-Medicare Part B [id number] ANSI-Commercial [id number]-[id number] ANSI-Medicare Part B [id number] ANSI-Commercial [id number] ANSI-Medicare Part B [id number] ANSI-Commercial [id number] [id number]-[id number] ANSI-Commercial [id number] ANSI-Medicare Part B [id number] ANSI-Commercial [id number]-a1mh-[id number]-[id number]-9k68-[id number] ANSI-Medicare Part B [id number] ANSI-Medicare Part B [id number] ANSI-Commercial [id number]-[id number] [employer] BCBS Medigap Part B [id number] Self [id number] Medicare [place] Medicare Primary [id number] Self [id number] [place] 200/700 UNAVAILABLE SP UNAVAILABLE [id number] Problems, Conditions, and Diagnoses Code Display Name Description Problem Type Effective Dates Data Source(s) G43.009 1769381 Migraine with aura a nd without status migrainosus, not intractable Problem 05/21/2020 12:00:00 AM EST eCW1 ([facility]) Surgeries/Procedures Procedure Description Date Indications Data Source(s) AntiCoag Mgmt Pt for Warfarin 11/30/2019 12:00:00 AM E DT eCW1 ([facility]) PROTHROMBIN TIME 09/28/2019 12:00:00 AM EDT eCW1 ([facility]) Office Visit, Est Pt., Level 3 PC 08/25/2019 12:00:00 AM EST eCW1 ([facility]) Office Visit, Est Pt., Level 3 FC 08/25/2019 12:00:00 AM EST eCW1 ([facility]) Annual wellness visit, includes a person alized prevention plan of service (pps), subsequent visit 08/25/2019 12:00:00 AM EST eCW1 ([facility]) Influenza immunization was not administe red for reasons documented by clinician (e.g., patient allergy or other medical reasons, patient declined or other patient reasons, vaccine not available or other system reasons) 08/25/2019 12:00:00 AM EST eCW1 ([facility]) Results ID Date Data Source PT-INR Fingerstick 05/21/2020 12:06:18 PM EST eCW1 ([facility]) Name Value Range Interpretation Code Description Data Dee rce(s) Supporting Document(s) 2.1 INR eCW1 ([facility]) YES Verified Patient's Name and DO B eCW1 ([facility]) 2.5mg M/W/F 5MG ROW Current Dose 1 eCW1 ([facility]) Current Dose 2 eCW1 ([facility]) Internal QC Acceptable (Y/N) e CW1 ([facility]) NO Recent Bleeding eCW1 ([facility]) Tab Strength eCW1 ([facility]) CVA Indication for Anticoagulation eCW1 ([facility]) Education Given (Date / Initia ls) eCW1 ([facility]) no change New Dose 1 eCW1 ([facility]) New Dose 2 eCW1 ([facility]) 2-3 Therapeutic Range eCW1 ([facility]) Weekly Total eCW1 ([facility]) - eCW1 (Critical access hospital) 4 weeks Next PT-INR eCW1 ([facility]) ID Date Data Source PT-INR 08/30/2019 12:00:00 AM EST eCW1 ([facility]) Name Value Range Interpretation Code Description Data Dee rce(s) Supporting Document(s) INR in Platelet poor plasma by Coagulation assay 2.87 INR eCW1 ([facility]) Prothrombin time (PT) 30.0 11.8-14.0 PROTHROMBIN TI ME eCW1 ([facility]) Procedure Social History Code Duration Value Status Description Data Source(s ) Smoking 05/21/2020 12:00:00 AM EST Former Smoker completed Former Smoker eCW1 ([facility]) Smoking 05/21/2020 12:00:00 AM EST Former Smoker completed Former Smoker eCW1 ([facility]) Smoking 05/21/2020 12:00:00 AM EST Former Smoker completed Former Smoker eCW1 ([facility]) Smoking 05/21/2020 12:00:00 AM EST Former Smoker completed Former Smoker eCW1 ([facility]) Smoking 05/21/2020 12:00:00 AM EST Former Smoker completed Former Smoker eCW1 ([facility]) Smoking 08/25/2019 12:00:00 AM EST Former Smoker completed Former Smoker eCW1 ([facility]) Smoking 08/25/2019 12:00:00 AM EST Former Smoker completed Former Smoker eCW1 ([facility]) Smoking 08/25/2019 12:00:00 AM EST Former Smoker completed Former Smoker eCW1 ([facility]) Smoking 08/25/2019 12:00:00 AM EST Former Smoker completed Former Smoker eCW1 ([facility]) Smoking 08/25/2019 12:00:00 AM EST Former Smoker completed Former Smoker eCW1 ([facility]) Vital Signs ID Date Data Source UNK Name Value Range Interpretation Code Description Data Source(s) Diastolic blood pressure 88 mm[Hg] 88 mm[Hg] eCW1 ([facility]) Systolic blood pressure 147 mm[Hg] 147 mm[Hg] e CW1 ([facility]) Body temperature 97.4 [degF] 97.4 [degF] eCW1 ( [facility]) Respiratory rate 16 /min 16 /min eCW1 ([facility]) Heart rate 75 /min 75 /min eCW1 ([facility]) Body mass index (BMI) [Ratio] 25.82 kg/m2 25.82 kg/m2 eCW1 ([facility]) Body height 69.5 [in_i] 69.5 [in_i] eCW1 ([facility]) Body weight 177.4 [lb_av] 177.4 [lb_av] eCW1 ([facility]) Diastolic blood pressure 73 mm[Hg] 73 mm[Hg] eCW1 ([facility]) Systolic blood pressure 113 mm[Hg] 113 mm[Hg] e CW1 ([facility]) Body temperature 97.9 [degF] 97.9 [degF] eCW1 ( [facility]) Respiratory rate 18 /min 18 /min eCW1 ([facility]) Heart rate 64 /min 64 /min eCW1 ([facility]) Body mass index (BMI) [Ratio] 26.69 kg/m2 26.69 kg/m2 eCW1 ([facility]) Body height 69.5 [in_us] 69.5 [in_us] eCW1 ([facility]) Body weight Measured 183.4 [lb_av] 183.4 [lb_av ] eCW1 ([facility])
--- OUTSIDE RECORDS SUMMARY | 2020-08-24 11:06 | CCD ---
Author Author [facility] Organization [facility] Address Unknown Phone Unavailable Support Name Relationship Address Phone RE Next Of Kin Unknown Unavailable LORRAINE FERRARI Next Of Kin [id number] REPLACED BY [facility] [address] [place] [address] [place] [address] Unavaila ble Re-disclosure Warning The records that [...] is protected by Article 27-F of the [facility] Public Health law. If you continue you may have access to information: Regarding HIV / AIDS; Provided by facilities licensed or operated by the [facility] Office of Mental Health; or Provided by the [facility] Office for People With Developmental Disabilities. If such information is present, then the following [facility] mandated warning applies: This information has been [...] law may result in a fine or nursing home sentence or both. A general authorization for the release of medical or other information is NOT sufficient authorization for further disc losure. Allergies and Adverse Reactions Type Description Substance Reaction Status Data Source(s ) Drug allergy Zocor Simvastatin myalgia Active eCW1 ([facility]) Family History Family Member Name Family Member Gender Family Member Status Date o f Status Description Data Source(s) Unknown Unknown Problem [facility], ) Encounters Encounter Providers Location Date Indications Data Source(s ) Outpatient [address] [facility] [address] 08/15/2020 12:00:00 AM EST eCW1 ([facility]) Unknown [address] [facility] [address] 07/24/2020 12:00:00 AM EST eCW1 ([facility]) Outpatient [address] [facility] [place] [address] 07/18/2020 12:00:00 AM EST eCW1 ([facility]) Outpatient [address] [facility] [address] 06/20/2020 12:00:00 AM EST eCW1 ([facility]) Outpatient [address] [facility] [address] 05/21/2020 12:00:00 AM EST eCW1 ([facility]) Unknown [address] [facility] [address] 05/09/2020 12:00:00 AM EDT eCW1 ([facility]) Outpatient [address] [facility] [address] 04/25/2020 12:00:00 AM EDT eCW1 ([facility]) [facility] [address] [facility] [address] 02/23/2020 12:00:00 AM EDT eCW1 ([facility]) Outpatient [address] [facility] [address] 01/25/2020 12:00:00 AM EDT eCW1 ([facility]) Unknown [address] [facility] [address] 01/23/2020 12:00:00 AM EDT eCW1 ([facility]) [facility] [address] [facility] [address] 2019 12:00:00 AM EDT eCW1 ([facility]) [facility] Iain [address] [facility] [address] 11/30/2019 12:00:00 AM EDT eCW1 ([facility]) [facility] [address] [facility] [address] 10/30/2019 12:00:00 AM EDT eCW1 ([facility]) [facility] [address] [place] [address] 10/30/2019 12:00:00 AM EDT eCW1 ([facility]) [facility] [address] [facility] [address] 10/26/2019 12:00:00 AM EDT eCW1 ([facility]) [facility] [address] [facility] [address] 10/25/2019 12:00:00 AM EDT eCW1 ([facility]) [facility] [address] [facility] [address] 10/13/2019 12:00:00 AM EDT eCW1 ([facility]) [facility] [address] [facility] [address] 09/29/2019 12:00:00 AM EDT eCW1 ([facility]) [facility] [address] [facility] [address] 09/28/2019 12:00:00 AM EDT eCW1 ([facility]) [facility] [address] [facility] [address] 08/30/2019 12:00:00 AM EST eCW1 ([facility]) [facility] [address] [facility] [address] 08/30/2019 12:00:00 AM EST eCW1 ([facility]) [address] [address] 08/25/2019 12:00:00 AM EST eCW1 ([facility]) [address] [address] 08/03/2019 12:00:00 AM EST eCW1 ([facility]) [address] [address] 08/03/2019 12:00:00 AM EST eCW1 ([facility]) [address] [address] 07/25/2019 12:00:00 AM EST eCW1 ([facility]) [address] [address] 07/03/2019 12:00:00 AM EST eCW1 ([facility]) [address] [address] 07/03/2019 12:00:00 AM EST eCW1 ([facility]) Medications Medication Brand Name Start Date Product [...] A DAY NEEDED MAX=2TABS/DAY SOLD: 05/15/2020 Dilia Hodgesu gs 40 mg 04/09/2020 12:00:00 AM EDT [...] type / Coverage type Policy ID Covered democrat ID Covered democrat's relationship to gamez Policy Gamez Plan Information MEDICARE [id number] SP [id number] [id number] [place]/307 [id number] SP [id number] [place]PO 302/307 [id number] SP [id number] MEDICARE [id number] SP [id number] V42 ANSI-Medicare Part B [id number] ANSI-Commercial [id number]-[id number] ANSI-Medicare Part B [id number] ANSI-Commercial [id number]-38lr-[id number] 5am5w728-37ty-11kg-[id number] ANSI-Commercial [id number]-[id number]-[id number] ANSI-Medicare Part B [id number]-[id number] ANSI-Commercial [id number]-40op-55th-[id number] 7exwn569-0ezv-79kt-90nl-[id number] ANSI-Medicare Part B [id number]-nrr0-121t-204d-[id number] ANSI-Commercial bkg8031i-w88e-564b-5e3w-[id number] pgi1091x-t74p-569v-9k3w-7y9c7j6bt095 ANSI-Medicare Part B [id number] Excell BCBS Medigap Part B [id number] Self [id number] Medicare [place] Medicare Primary [id number] Self [id number] ANSI-Commercial [id number]-10wv-[id number]-33xi-88c3b3xr7j8k ANSI-Medicare Part B [id number]-7a1i-462q-[id number] ANSI-Medicare Part B [id number]-[id number] ANSI-Commercial si6ag7wd-obu3-7352-13j1-fo97f201t4cy wl0qi9de-pax1-2949-69i4-pb97l411o5uv ANSI-Commercial 79o8e832-f041-7167-0354-343276sgb3f5 70d5h301-g838-8176-1320-394384ceo2w7 ANSI-Medicare Part B [id number]-w4pj-27w5-9i0t-[id number] ANSI-Commercial [id number]-w5w7-xj645248370g [id number]-o6l9-vd473844785j ANSI-Medicare Part B [id number]-v4ef-2k74-1a61-35um0838o1a9 ANSI-Medicare Part B [id number] 98ji8h29-5j71-0657-6v07-8757j678hsz4 ANSI-Commercial d4425687-ca99-6ww6-qs1u-8f1i7g80206x u9844786-yd25-8cc8-ky9b-9m7m8q72807t ANSI-Commercial 76ao9ppo-r342-8k56-70cs-65gf4018e1d9 97dr8hrr-e691-3g51-21cf-16rt5990q8b1 ANSI-Medicare Part B [id number]-0a18-82c6-ku4386815f60 ANSI-Commercial 6k856m14-8805-8yq2-m13r-4y3z602061i2 8o142c81-0192-9eo7-e53k-4i0n888668u9 ANSI-Medicare Part B [id number]-[id number] 38e5rr57-7o55-083a-a9a7-11j649183lfn MEDICARE [id number] SP [id number] ANSI-Medicare Part B [id number]-c125-573q-[id number] ANSI-Commercial 8r6779n6-r215-77kj-920i-c5053f17o124 0d0225b2-r054-19op-764k-m1245j86r586 ANSI-Medicare Part B [id number]-[id number] 5108zr76-21av-0ju5-8q42-b3qjh61i8970 ANSI-Commercial 1f11vqx7-fvs1-9u3o-463n-z298401p2614 0d65qpm4-opf0-9k6m-953s-v192010p0920 ANSI-Commercial i7721711-da04-9dlz-7451-0203279lld81 b8784766-ep70-7iup-6534-1821768hzo55 ANSI-Medicare Part B [id number] 4ovbor42-9122-24n8-76k0-576qaczzf415 ANSI-Commercial 82935u27-f84a-4132-p316-1f185h291h7d 21006v55-l73w-1588-m403-1e340z579e6r ANSI-Medicare Part B [id number] u32oa7rd-20x1-1f23-8873-9f48796jop4g ANSI-Medicare Part B [id number]-[id number] [id number]-wi1c-3jl2-2x82-523kly928q62 ANSI-Commercial wx215r13-s011-5690-ge70-9w34wl503e2t zj952j32-v561-3853-ns97-0q16lu566x4l ANSI-Medicare Part B [id number] fu220f94-9671-80j5-9da1-4r09rgp6ck3v ANSI-Commercial v442l371-94xy-3i5g-34qy-wj15m3m7e37c q340j518-66pp-1z9q-38hj-ax27j5b2n61m ANSI-Commercial 7g8d59c4-k364-0583-7zxz-0l2w2z8h1m9p 0b1w52w2-j866-0056-8mmq-7g4i5l4n9m3i ANSI-Medicare Part B [id number]-83b9-d13n-qe8ajfz97j3m 5x4888e2-52qp-38e0-u81s-rn5wdsv55p7m ANSI-Commercial 8q4n9390-6cpn-3236-j5xm-o0x10lk9y3vt 5u9h8722-1cuz-4757-x6fb-p1k01qw7v6qq ANSI-Medicare Part B [id number]-7069-i97t-02iz25yok195 3p7kwn30-41bg-5434-p86i-38zx33hwv419 ANSI-Medicare Part B [id number]-tcy3-2g9o-z7hw-1l2zl0s7416e 7iifn794-agb6-4b2v-f0xq-7a4sx8v5632y ANSI-Commercial 4zoi0d39-4312-219w-z309-7ka247m7y72h 9sbq3o56-4249-937x-p519-4yr519b3k99d ANSI-Commercial 77c70603-p93z-5vn3-30sb-0l5829388677 40s69508-l34r-8gw5-92yt-0z7971611043 ANSI-Medicare Part B [id number]-x023-1604-2yh5-y85li04z10pt 1380f357-a674-0785-5lp4-k33ex14r84ga ANSI-Commercial p47799z3-2498-4755-242r-9m4w6c24cipd q17784c7-9671-9983-468y-8u2e3z91hayo ANSI-Medicare Part B [id number]-9n98-6pri-212c-[id number] 99j32i1k-5b47-8bmm-726j-1c700e130t31 ANSI-Commercial hb864txm-708j-82d1-44gt-1f33i14tn668 ec711czr-948m-23t0-05ib-8s38o24hk294 ANSI-Medicare Part B [id number]-p53n-8r81e3314w4n 560q2f1w-2ft0-80m6-x36i-7a37g9853c0n ANSI-Medicare Part B [id number]-z715-18s5-6f44-77645fm7vp23 9effp5u2-r788-93l6-5n22-67863gs3fr49 ANSI-Commercial 57295bp0-508r-7y64-1114-c13dx3qa6031 61628hs7-044w-0l24-3842-b44ek5as7850 ANSI-Medicare Part B [id number]-94q6-ra72-t8rxu9glp07y y8739ts3-53en-06l4-bd54-q0wmy2ncc85c ANSI-Commercial h3222653-36ke-631l-06w6-62531irwmdg3 g8060233-25cd-424v-39y0-55896jzkdzn7 ANSI-Medicare Part B [id number]-[id number] z5757i62-969s-8x1w-1o64-5q29016z11f1 ANSI-Commercial 3kx4zr03-407i-9037-322a-u4xnu4swc064 2jf7yq49-663d-7852-541g-x6uyv4ouu788 ANSI-Commercial 7374x9x3-77f4-1q48-0844-l5g74v19244h 4073z3z5-45g3-5c41-2341-t2d61i98419e ANSI-Medicare Part B [id number]-[id number] 9a6jkogj-4240-680t-[id number] ANSI-Commercial uvrbdr3i-v1wh-7d78-qas9-46bw8yi83048 qedvkz8g-t8bv-6m48-kek2-38fd9hy87194 ANSI-Medicare Part B [id number]-[id number] 8tw01h3l-rqw2-5d38-a477-geoc5il8149s ANSI-Medicare Part B [id number]-[id number] 8qg020m4-ug5t-1rv6-l136-c95sd29o42jf ANSI-Commercial [id number]-m01w-0024-48om-xma21pfs77ua 42b73948-t93c-5798-46ls-jqo71cse76qa Excell BCBS Medigap Part B [id number] Self [id number] Medicare [place] Medicare Primary [id number] Self [id number] [place]BS [place] 200/700 UNAVAILABLE SP UNAVAILABLE [id number] Problems, Conditions, and Diagnoses Code Display Name Description Problem Type Effective Dates Data Source(s) G43.031 7891286 Migraine with aura a nd without status migrainosus, not intractable Problem 05/21/2020 12:00:00 AM EST eCW1 ([facility]) Surgeries/Procedures Procedure Description Date Indications Data Source(s) AntiCoag Mgmt Pt for Warfarin 11/30/2019 12:00:00 AM E DT eCW1 ([facility]) PROTHROMBIN TIME 09/28/2019 12:00:00 AM EDT eCW1 ([facility]) Office Visit, Est Pt., Level 3 PC 08/25/2019 12:00:00 AM EST eCW1 ([facility]) Office Visit, Est Pt., Level 3 FC 08/25/2019 12:00:00 AM EST eCW1 ([facility]) Annual wellness visit, includes a person alized prevention plan of service (pps), subsequent visit 08/25/2019 12:00:00 AM EST eCW1 ([facility]) Influenza immunization was not administe red for reasons documented by clinician (e.g., patient allergy or other medical reasons, patient declined or other patient reasons, vaccine not available or other system reasons) 08/25/2019 12:00:00 AM EST eCW1 ([facility]) Results ID Date Data Source PT-INR Fingerstick 05/21/2020 12:06:18 PM EST eCW1 ([facility]) Name Value Range Interpretation Code Description Data Dee rce(s) Supporting Document(s) 2.1 INR eCW1 ([facility]) YES Verified Patient's Name and DO B eCW1 ([facility]) 2.5mg M/W/F 5MG ROW Current Dose 1 eCW1 ([facility]) Current Dose 2 eCW1 ([facility]) Internal QC Acceptable (Y/N) e CW1 ([facility]) NO Recent Bleeding eCW1 ([facility]) Tab Strength eCW1 ([facility]) CVA Indication for Anticoagulation eCW1 ([facility]) Education Given (Date / Initia ls) eCW1 ([facility]) no change New Dose 1 eCW1 ([facility]) New Dose 2 eCW1 ([facility]) 2-3 Therapeutic Range [facility]) Weekly Total eCW1 ([facility]) - eCW1 ([facility]) 4 weeks Next [facility] ID Date Data Source PT-INR 08/30/2019 12:00:00 AM EST eCW1 ([facility]) Name Value Range Interpretation Code Description Data Dee rce(s) Supporting Document(s) INR in Platelet poor plasma by Coagulation assay 2.87 INR eCW1 ([facility]) Prothrombin time (PT) 30.0 11.8-14.0 PROTHROMBIN TI ME eCW1 ([facility]) Procedure Social History Code Duration Value Status Description Data Source(s ) Smoking 05/21/2020 12:00:00 AM EST Former Smoker completed Former Smoker eCW1 ([facility]) Smoking 05/21/2020 12:00:00 AM EST Former Smoker completed Former Smoker eCW1 ([facility]) Smoking 05/21/2020 12:00:00 AM EST Former Smoker completed Former Smoker eCW1 ([facility]) Smoking 05/21/2020 12:00:00 AM EST Former Smoker completed Former Smoker eCW1 ([facility]) Smoking 05/21/2020 12:00:00 AM EST Former Smoker completed Former Smoker eCW1 ([facility]) Smoking 08/25/2019 12:00:00 AM EST Former Smoker completed Former Smoker eCW1 ([facility]) Smoking 08/25/2019 12:00:00 AM EST Former Smoker completed Former Smoker eCW1 ([facility]) Smoking 08/25/2019 12:00:00 AM EST Former Smoker completed Former Smoker eCW1 ([facility]) Smoking 08/25/2019 12:00:00 AM EST Former Smoker completed Former Smoker eCW1 ([facility]) Smoking 08/25/2019 12:00:00 AM EST Former Smoker completed Former Smoker eCW1 ([facility]) Vital Signs ID Date Data Source UNK Name Value Range Interpretation Code Description Data Source(s) Diastolic blood pressure 88 mm[Hg] 88 mm[Hg] eCW1 ([facility]) Systolic blood pressure 147 mm[Hg] 147 mm[Hg] e CW1 ([facility]) Body temperature 97.4 [degF] 97.4 [degF] eCW1 ( [facility]) Respiratory rate 16 /min 16 /min eCW1 ([facility]) Heart rate 75 /min 75 /min eCW1 ([facility]) Body mass index (BMI) [Ratio] 25.82 kg/m2 25.82 kg/m2 eCW1 ([facility]) Body height 69.5 [in_i] 69.5 [in_i] eCW1 ([facility]) Body weight 177.4 [lb_av] 177.4 [lb_av] eCW1 ([facility]) Diastolic blood pressure 73 mm[Hg] 73 mm[Hg] eCW1 ([facility]) Systolic blood pressure 113 mm[Hg] 113 mm[Hg] e CW1 ([facility]) Body temperature 97.9 [degF] 97.9 [degF] eCW1 ( [facility]) Respiratory rate 18 /min 18 /min eCW1 ([facility]) Heart rate 64 /min 64 /min eCW1 ([facility]) Body mass index (BMI) [Ratio] 26.69 kg/m2 26.69 kg/m2 eCW1 ([facility]) Body height 69.5 [in_us] 69.5 [in_us] eCW1 ([facility]) Body weight Measured 183.4 [lb_av] 183.4 [lb_av ] eCW1 ([facility])
[2020-08-24 11:14] LABS: BASO % 0.1 % (0.0-1.0); EOS % 0.1 % (0.0-3.0); HEMATOCRIT 45.9 % (42.0-52.0); HEMOGLOBIN 15.8 g/dl (13.5-17.5); LYMPH # 0.9 10^3/uL (1.5-5.0); MEAN CORPUSCULAR HEMOGLOBIN 31.7 pg (27.0-33.0); MEAN CORPUSCULAR HGB CONC 34.4 g/dl (32.0-36.5); MONO # 0.6 10^3/uL (0.0-0.8); MONO % 8.5 % (2.0-8.0); NEUTROPHILS # 5.2 10^3/uL (1.5-8.5); NEUTROPHILS % 76.9 % (36.0-66.0); PLATELET COUNT, AUTOMATED 184 10^3/uL (150-450); RED BLOOD COUNT 4.99 10^6/uL (4.30-6.10); WHITE BLOOD COUNT 6.7 10^3/uL (4.0-10.0)
--- NOTE | 2020-08-24 11:16 | REP ---
INDICATION: CHEST PAIN. COMPARISON: Comparison chest x-ray 15 July 2017. TECHNIQUE: Portable upright AP chest radiograph. FINDINGS: The lungs are well inflated and free of infiltrate. Pleural angles are sharp. Heart size is normal. Pulmonary vasculature is not increased. Thoracic aorta is somewhat tortuous as before. There are degenerative changes in the shoulders. Monitoring electrodes are seen. IMPRESSION: No active disease. <Electronically signed by Jose Chapin > 08/24/20 1119
[2020-08-24 11:43] LABS: ALBUMIN 4.2 GM/DL (3.2-5.2); BILIRUBIN,DIRECT 0.2 MG/DL (0.0-0.2); BILIRUBIN,TOTAL 0.7 MG/DL (0.2-1.0); TOTAL PROTEIN 7.4 GM/DL (6.4-8.2)
--- NOTE | 2020-08-24 13:16 | REP ---
INDICATION: RUQ pain. COMPARISON: Comparison CT study August 22, 2013.. TECHNIQUE: Right upper quadrant sonography. FINDINGS: Scanning through the right upper quadrant of the abdomen demonstrates a normal sized, thin-walled gallbladder without evidence of stone. There is a 1 mm nonshadowing focus near the neck of the gallbladder consistent with a tiny polyp.. Common bile duct is normal measuring 0.5 cm in greatest diameter. No focal liver lesion is seen. Liver size is normal. No pancreatic abnormality is observed. No right renal abnormality is seen. There is no evidence of ascites. The right kidney measures 10.4 x 5.2 x 4.0 cm. IMPRESSION: Tiny polyp suspected near the neck of the gallbladder, 1 mm. Otherwise negative right upper quadrant sonography.. <Electronically signed by Jose Chapin > 08/24/20 [id number]
--- NOTE | 2020-08-24 13:58 | REP ---
INDICATION: headache on warfarin. COMPARISON: Comparison CT study August 28, 2011.. TECHNIQUE: Helical scanning is acquired. 5 mm axial images were reformatted. Coronal MPR images were generated. FINDINGS: Bone window settings demonstrate an intact bony calvarium. There is no evidence of skull fracture or incidental bony calvarial lesion. The visualized paranasal sinuses appear clear. No intraorbital abnormality is seen. On soft tissue window setting images; the lateral, third, and fourth ventricles are normal in size and position. Ray-white differentiation pattern is normal above and below the tentorium. There are is no evidence of intracranial hemorrhage. No mass, edema, or midline shift is seen. No extra-axial fluid collection is appreciated. There is generalized volume loss. Vascular calcification is observed. There are extensive small-vessel atherosclerotic low-density changes in the periventricular white matter of the supratentorial brain. The pattern is slightly more prominent than on the 2012 prior study. There is a 0.8 cm low-density area in the left basal ganglia which was not present previously consistent with a old lacunar infarct. There is a smaller old lacunar infarct in the right basal ganglia. This appears to have been present previously. No acute cortical or acute deep white matter infarction is appreciated. There is no evidence of intracranial hemorrhage. IMPRESSION: Generalized volume loss, vascular calcification, extensive small-vessel changes. 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 No acute intracranial abnormality.. <Electronically signed by Jose Chapin > 08/24/20 [id number]
[2020-08-24 14:30] VITALS: BP 142/84
--- NOTE | 2020-08-25 20:37 | ECGEPIP ---
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
--- NOTE | 2020-08-25 20:39 | ECGEPIP ---
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
== END 2020-08-24 14:40 | disposition home or self-care (01) ==
LOC: M ED 10:27
DX: R07.89 Other chest pain (principal); K21.9 Gastro-esophageal reflux disease without esophagitis; E87.1 Hypo-osmolality and hyponatremia; G43.909 Migraine, unspecified, not intractable, without status migrainosus; N40.0 Benign prostatic hyperplasia without lower urinary tract symptoms; E78.5 Hyperlipidemia, unspecified; Z79.01 Long term (current) use of 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s; Z79.899 Other long term (current) drug therapy

== ENCOUNTER → 2020-11-19 | Outpatient (REF) | payer MEDICARE, BC ==
[2020-11-20 11:25] LABS: BASO % 0.6 % (0.0-1.0); EOS # 0.1 10^3/uL (0.0-0.5); EOS % 1.2 % (0.0-3.0); HEMATOCRIT 43.6 % (42.0-52.0); HEMOGLOBIN 14.8 g/dl (13.5-17.5); LYMPH # 1.4 10^3/uL (1.5-5.0); LYMPH % 27.7 % (24.0-44.0); MEAN CORPUSCULAR HEMOGLOBIN 32.5 pg (27.0-33.0); MEAN CORPUSCULAR HGB CONC 33.9 g/dl (32.0-36.5); MEAN CORPUSCULAR VOLUME 95.6 fl (80.0-96.0); MONO # 0.6 10^3/uL (0.0-0.8); MONO % 10.8 % (2.0-8.0); NEUTROPHILS % 59.3 % (36.0-66.0); PLATELET COUNT, AUTOMATED 205 10^3/uL (150-450); RED BLOOD COUNT 4.56 10^6/uL (4.30-6.10); WHITE BLOOD COUNT 5.1 10^3/uL (4.0-10.0)
[2020-11-20 11:28] LABS: ALT/SGPT 36 U/L (12-78); BILIRUBIN,TOTAL 0.6 MG/DL (0.2-1.0); BLOOD UREA NITROGEN 12 MG/DL (7-18); CALCIUM LEVEL 9.6 MG/DL (8.8-10.2); CARBON DIOXIDE LEVEL 28 MEQ/L (21-32); CHLORIDE LEVEL 99 MEQ/L (98-107); CHOLESTEROL LEVEL 172 MG/DL (<200); CHOLESTEROL RISK RATIO 4.777 (<5); CREATININE FOR GFR 0.84 MG/DL (0.70-1.30); GLOMERULAR FILTRATION RATE > 60.0 (>42); GLUCOSE, FASTING 101 MG/DL (70-100); HDL CHOLESTEROL 36 MG/DL (>40); LDL CHOLESTEROL 82 MG/DL (<100); MAGNESIUM LEVEL 1.9 MG/DL (1.8-2.4); NON-HDL-C 136 MG/DL; POTASSIUM SERUM 4.5 MEQ/L (3.5-5.1); SODIUM LEVEL 132 MEQ/L (136-145); TOTAL PROTEIN 6.8 GM/DL (6.4-8.2); TRIGLYCERIDES LEVEL 271 MG/DL (<150)
== END ==
LOC: M SFHCCLAY 14:37
PROVIDERS: ATTEND Family Medicine
DX: E78.2 Mixed hyperlipidemia (principal); K21.9 Gastro-esophageal reflux disease without esophagitis; Z86.73 Personal history of transient ischemic attack (TIA), and cerebral infarction without residual deficits
CPT/HCPCS: 80053; 80061; 83735; 85025; 85610; G0463

== ENCOUNTER → 2021-07-14 | Outpatient (REF) | payer MEDICARE, BC ==
[2021-07-14 16:56] LABS: INR 2.9; PROTHROMBIN TIME 30.6 SECONDS (12.7-14.5)
== END ==
LOC: M SFHCCLAY 11:13
PROVIDERS: ATTEND Family Medicine
DX: Z79.01 Long term (current) use of 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s (principal); Z86.73 Personal history of transient ischemic attack (TIA), and cerebral infarction without residual deficits

== ENCOUNTER → 2021-10-09 | Outpatient (REF) | payer MEDICARE, BC ==
[~2021-10-09] MED LIST changes: -OMEP-221 PO; +OMEP40CA5 PO
[2021-10-09 16:24] LABS: BASO % 0.6 % (0.0-1.0); EOS # 0.1 10^3/uL (0.0-0.5); EOS % 2.1 % (0.0-3.0); HEMATOCRIT 41.9 % (42.0-52.0); HEMOGLOBIN 14.6 g/dl (13.5-17.5); LYMPH # 1.4 10^3/uL (1.5-5.0); LYMPH % 26.5 % (24.0-44.0); MEAN CORPUSCULAR HEMOGLOBIN 32.2 pg (27.0-33.0); MEAN CORPUSCULAR HGB CONC 34.8 g/dl (32.0-36.5); MEAN CORPUSCULAR VOLUME 92.5 fl (80.0-96.0); MONO # 0.5 10^3/uL (0.0-0.8); MONO % 10.5 % (2.0-8.0); NEUTROPHILS # 3.1 10^3/uL (1.5-8.5); NEUTROPHILS % 59.9 % (36.0-66.0); PLATELET COUNT, AUTOMATED 173 10^3/uL (150-450); RED BLOOD COUNT 4.53 10^6/uL (4.30-6.10); WHITE BLOOD COUNT 5.1 10^3/uL (4.0-10.0)
[2021-10-09 16:35] LABS: ALBUMIN 3.8 GM/DL (3.2-5.2); ALT/SGPT 31 U/L (12-78); BILIRUBIN,TOTAL 0.7 MG/DL (0.2-1.0); BLOOD UREA NITROGEN 14 MG/DL (7-18); CALCIUM LEVEL 9.3 MG/DL (8.8-10.2); CARBON DIOXIDE LEVEL 29 MEQ/L (21-32); CHLORIDE LEVEL 97 MEQ/L (98-107); CHOLESTEROL LEVEL 180 MG/DL (<200); CHOLESTEROL RISK RATIO 4.615 (<5); CREATININE FOR GFR 0.91 MG/DL (0.70-1.30); GLOMERULAR FILTRATION RATE > 60.0 (>42); GLUCOSE, FASTING 103 MG/DL (70-100); HDL CHOLESTEROL 39 MG/DL (>40); LDL CHOLESTEROL 110 MG/DL (<100); MAGNESIUM LEVEL 1.9 MG/DL (1.8-2.4); NON-HDL-C 141 MG/DL; POTASSIUM SERUM 4.4 MEQ/L (3.5-5.1); SODIUM LEVEL 131 MEQ/L (136-145); TOTAL PROTEIN 6.7 GM/DL (6.4-8.2); TRIGLYCERIDES LEVEL 156 MG/DL (<150)
[2021-10-09 16:38] LABS: INR 2.15; PROTHROMBIN TIME 24.4 SECONDS (12.7-14.5)
== END ==
LOC: M SFHCCLAY 10:34
PROVIDERS: ATTEND Family Medicine
DX: E78.2 Mixed hyperlipidemia (principal); K21.9 Gastro-esophageal reflux disease without esophagitis; Z79.01 Long term (current) use of 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s; Z86.73 Personal history of transient ischemic attack (TIA), and cerebral infarction without residual deficits

== ENCOUNTER → 2022-10-29 | Outpatient (REF) | payer MEDICARE, BC ==
[2022-10-29 17:24] LABS: HEMATOCRIT 44.2 % (42.0-52.0); MEAN CORPUSCULAR HEMOGLOBIN 32.2 pg (27.0-33.0); MEAN CORPUSCULAR HGB CONC 33.9 g/dl (32.0-36.5); MEAN CORPUSCULAR VOLUME 94.8 fl (80.0-96.0); PLATELET COUNT, AUTOMATED 180 10^3/uL (150-450); RED BLOOD COUNT 4.66 10^6/uL (4.30-6.10); WHITE BLOOD COUNT 4.5 10^3/uL (4.0-10.0)
[2022-10-29 17:30] LABS: INR 2.06; PROTHROMBIN TIME 23.6 SECONDS (12.5-14.5)
[2022-10-29 17:46] LABS: ALBUMIN 3.7 G/DL (3.2-5.2); ALKALINE PHOSPHATASE 75 U/L (46-116); ALT/SGPT 28 U/L (7.0-40); AST/SGOT 25 U/L (<34); BILIRUBIN,TOTAL 0.8 MG/DL (0.3-1.2); BLOOD UREA NITROGEN 10 MG/DL (9-23); CALCIUM LEVEL 9.1 MG/DL (8.3-10.6); CARBON DIOXIDE LEVEL 29 MMOL/L (20-31); CHLORIDE LEVEL 94 MMOL/L (98-107); CHOLESTEROL LEVEL 158 MG/DL (<200); CHOLESTEROL RISK RATIO 4.56 (<5); CK-MB VALUE MASS 2.3 NG/ML (<3.6); CPK CREATINE PHOSPHOKINASE 117 U/L (46-171); CREATININE FOR GFR 0.85 MG/DL (0.70-1.30); GLOMERULAR FILTRATION RATE > 60.0 (>35); GLUCOSE, FASTING 97 MG/DL (74-106); HDL CHOLESTEROL 34.6 MG/DL (>40); LDL CHOLESTEROL 76.8 MG/DL (<100); MAGNESIUM LEVEL 1.9 MG/DL (1.8-2.4); MB/CK RELATIVE INDEX 1.96 (< OR =4); NON-HDL-C 123.4 MG/DL; POTASSIUM SERUM 4.7 MMOL/L (3.5-5.1); SODIUM LEVEL 127 MMOL/L (136-145); TOTAL PROTEIN 6.6 G/DL (5.7-8.2); TRIGLYCERIDES LEVEL 233 MG/DL (<150)
== END ==
LOC: M SFHCCLAY 10:42
PROVIDERS: ATTEND Family Medicine
DX: E78.2 Mixed hyperlipidemia (principal); K21.9 Gastro-esophageal reflux disease without esophagitis; Z79.01 Long term (current) use of 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s; Z86.73 Personal history of transient ischemic attack (TIA), and cerebral infarction without residual deficits

== ENCOUNTER → 2023-05-11 | Outpatient (CLI) | payer MEDICARE, BC | LOC: M CLY 11:14 | PROVIDERS: ATTEND Family Medicine | DX: R06.2 Wheezing (principal) ==

== ENCOUNTER → 2023-05-11 | Outpatient (CLI) | payer MEDICARE, BC | LOC: M CLY 11:35 | PROVIDERS: ATTEND Family Medicine | DX: R06.2 Wheezing (principal) ==

== ENCOUNTER → 2023-12-10 | Outpatient (REF) | payer MEDICARE, BC ==
[2023-12-10 17:14] LABS: HEMATOCRIT 42.4 % (42.0-52.0); MEAN CORPUSCULAR HEMOGLOBIN 32.4 pg (27.0-33.0); MEAN CORPUSCULAR HGB CONC 35.4 g/dl (32.0-36.5); MEAN CORPUSCULAR VOLUME 91.6 fl (80.0-96.0); PLATELET COUNT, AUTOMATED 185 10^3/uL (150-450); RED BLOOD COUNT 4.63 10^6/uL (4.30-6.10); WHITE BLOOD COUNT 5.3 10^3/uL (4.0-10.0)
[2023-12-10 17:22] LABS: INR 3.47; PROTHROMBIN TIME 33.6 SECONDS (12.5-14.5)
[2023-12-10 17:33] LABS: ALBUMIN 3.8 G/DL (3.2-5.2); ALKALINE PHOSPHATASE 61 U/L (46-116); ALT/SGPT 34 U/L (7.0-40); AST/SGOT 23 U/L (<34); BILIRUBIN,TOTAL 0.8 MG/DL (0.3-1.2); BLOOD UREA NITROGEN 10 MG/DL (9-23); CALCIUM LEVEL 9.2 MG/DL (8.3-10.6); CARBON DIOXIDE LEVEL 29 MMOL/L (20-31); CHLORIDE LEVEL 95 MMOL/L (98-107); CHOLESTEROL LEVEL 163 MG/DL (<200); CHOLESTEROL RISK RATIO 4.67 (<5); CREATININE FOR GFR 0.85 MG/DL (0.70-1.30); GLOMERULAR FILTRATION RATE > 60.0 (>35); GLUCOSE, FASTING 99 MG/DL (74-106); HDL CHOLESTEROL 34.9 MG/DL (>40); LDL CHOLESTEROL 66.9 MG/DL (<100); MAGNESIUM LEVEL 1.8 MG/DL (1.8-2.4); NON-HDL-C 128.1 MG/DL; POTASSIUM SERUM 4.8 MMOL/L (3.5-5.1); SODIUM LEVEL 129 MMOL/L (136-145); TOTAL PROTEIN 6.5 G/DL (5.7-8.2); TRIGLYCERIDES LEVEL 306 MG/DL (<150)
[2023-12-10 17:37] LABS: THYROID STIMULATING HORMONE 3.389 uIU/ML (0.55-4.78)
== END ==
LOC: M SFHCCLAY 10:54
PROVIDERS: ATTEND Family Medicine
DX: E78.2 Mixed hyperlipidemia (principal); K21.9 Gastro-esophageal reflux disease without esophagitis; Z86.73 Personal history of transient ischemic attack (TIA), and cerebral infarction without residual deficits; G43.109 Migraine with aura, not intractable, without status migrainosus; R00.2 Palpitations

== ENCOUNTER → 2025-02-01 | Outpatient (REF) | payer MEDICARE, BC ==
[2025-02-01 17:21] LABS: PLATELET COUNT, AUTOMATED 191 10^3/uL (150-450)
[2025-02-01 17:23] LABS: ALT/SGPT 29.0 U/L (7.0-40); AST/SGOT 27.0 U/L (<34); CALCIUM LEVEL 9.1 MG/DL (8.3-10.6); CARBON DIOXIDE LEVEL 27.0 MMOL/L (20-31); CHLORIDE LEVEL 93.0 MMOL/L (98-107); CHOLESTEROL LEVEL 172.0 MG/DL (<200); CHOLESTEROL RISK RATIO 4.62 (<5); CREATININE FOR GFR 0.75 MG/DL (0.70-1.30); GLOMERULAR FILTRATION RATE 89.5 (>35); LDL CHOLESTEROL 94.6 MG/DL (<100); MAGNESIUM LEVEL 1.7 MG/DL (1.8-2.4); NON-HDL-C 134.8 MG/DL; POTASSIUM SERUM 4.2 MMOL/L (3.5-5.1); SODIUM LEVEL 131.0 MMOL/L (136-145); TRIGLYCERIDES LEVEL 201.0 MG/DL (<150)
[2025-02-01 17:27] LABS: INR 1.51
== END ==
LOC: M SFHCCLAY 11:10
PROVIDERS: ATTEND Family Medicine
DX: E78.2 Mixed hyperlipidemia (principal); Z79.01 Long term (current) use of 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s; K21.9 Gastro-esophageal reflux disease without esophagitis; Z86.73 Personal history of transient ischemic attack (TIA), and cerebral infarction without residual deficits